=== PATIENT | female | born 1945 | race Caucasian/White ===

== ENCOUNTER 2017-07-30 11:55 | Inpatient (IN) | payer MEDICARE, OTHER ==
[2017-07-30] MEDS: SOD CHLORIDE 0.9% 1,000 ML IV ×2 (15:00→23:00)
[2017-07-30 15:34] LABS: ADD MAN DIFF? NO
[2017-07-30 15:38] LABS: WHITE BLOOD COUNT 9.6 10^3/ul (4.8-10.8)
[2017-07-30 15:38] LABS: ABNORMAL IP MESSAGE 1; BASOPHIL # 0.1 10^3/ul (0.0-0.1); BASOPHILS % 0.5 % (0.0-2.0); EOSINOPHILS # 0.1 10^3/ul (0.0-0.5); EOSINOPHILS % 0.9 % (0.0-7.0); HEMATOCRIT 37.7 % (37.0-47.0); HEMOGLOBIN 11.2 g/dl (12.0-16.0); LYMPHOCYTES # 0.9 10^3/ul (0.8-2.9); LYMPHOCYTES % 9.8 % (15.0-51.0); MEAN CORPUSCULAR HEMOGLOBIN 28.9 pg (29.0-33.0); MEAN CORPUSCULAR HGB CONC 29.7 g/dl (32.0-37.0); MEAN CORPUSCULAR VOLUME 97.2 fl (82.0-101.0); MEAN PLATELET VOLUME 13.2 fl (7.4-10.4); MONOCYTE # 0.8 10^3/ul (0.3-0.9); MONOCYTES % 7.9 % (0.0-11.0); NEUTROPHIL # 7.6 10^3/ul (1.6-7.5); NEUTROPHILS % 79.9 % (39.0-77.0); PLATELET COUNT 138 10^3/UL (140-415); RED BLOOD COUNT 3.88 10^6/ul (4.20-5.40); RED CELL DISTRIBUTION WIDTH 15.6 % (11.5-14.5)
[2017-07-30 15:47] LABS: POSITIVE DIFF @See below
[2017-07-30 15:57] LABS: INR 0.93; PROTIME 12.5 Sec (11.9-14.9)
[2017-07-30] MEDS ORDERED: PENDING SANTYL ORDER FOR WOUND CARE XX (16:00)
[2017-07-30 16:04] LABS: ALANINE AMINOTRANSFERASE 37 IU/L (13-69); ALBUMIN 3.9 g/dl (3.3-4.9); ALBUMIN/GLOBULIN RATIO 1.08; ALKALINE PHOSPHATASE 108 IU/L (42-121); ANION GAP 18 (8-16); ASPARTATE AMINO TRANSFERASE 15 IU/L (15-46); BLOOD UREA NITROGEN 81 mg/dl (7-20); CALCIUM 10.4 mg/dl (8.4-10.2); CARBON DIOXIDE 19 mmol/L (21-31); CHLORIDE 115 mmol/L (97-110); CREATININE 5.06 mg/dl (0.44-1.00); GLUCOSE 77 mg/dl (70-220); POTASSIUM 5.5 mmol/L (3.5-5.1); SODIUM 146 mmol/L (135-144); TOTAL PROTEIN 7.5 g/dl (6.1-8.1)
[2017-07-30] MEDS ORDERED: ACETAMINOPHEN 325 MG TAB PO (16:30)
[2017-07-30] MEDS ORDERED: ONDANSETRON 4 MG INJ IV (16:30)
[2017-07-30] MEDS ORDERED: NACL 0.9% 3 ML SYG IV (16:30)
[2017-07-30] MEDS: CALCIUM ACETATE 667 MG CAP PO (17:35)
[2017-07-30 19:39] LABS: ALANINE AMINOTRANSFERASE 28 IU/L (13-69); ALBUMIN 3.9 g/dl (3.3-4.9); ALBUMIN/GLOBULIN RATIO 1.11; ALKALINE PHOSPHATASE 106 IU/L (42-121); ANION GAP 16 (8-16); ASPARTATE AMINO TRANSFERASE 13 IU/L (15-46); BLOOD UREA NITROGEN 78 mg/dl (7-20); CALCIUM 10.2 mg/dl (8.4-10.2); CARBON DIOXIDE 19 mmol/L (21-31); CHLORIDE 117 mmol/L (97-110); CREATININE 4.97 mg/dl (0.44-1.00); GLUCOSE 103 mg/dl (70-220); POTASSIUM 5.3 mmol/L (3.5-5.1); SODIUM 147 mmol/L (135-144); TOTAL PROTEIN 7.4 g/dl (6.1-8.1)
[2017-07-30 20:10] LABS: HEPATITIS B SURFACE ANTIGEN NEGATIVE (NEGATIVE)
[2017-07-30 20:27] LABS: HEPATITIS C VIRAL ANTIBODY NEGATIVE (NEGATIVE)
[2017-07-30] MEDS: CITRIC ACID/SODIUM CITRATE 15 ML CUP PO (20:52)
[2017-07-30] MEDS: QUETIAPINE 25 MG TAB PO (20:53)
[2017-07-30] MEDS: RISPERIDONE 1 MG TAB PO (20:53)
[2017-07-30] MEDS: HEPARIN 5,000 UNIT/0.5 ML VIAL SC (20:53)
[2017-07-31 01:57] LABS: ADD UMIC YES; UR AMORPHOUS CRYSTAL FEW /HPF (NONE SEEN); UR ASCORBIC ACID NEGATIVE (NEGATIVE); UR BACTERIA MODERATE /HPF (NONE SEEN); UR BILIRUBIN (Dip) NEGATIVE (NEGATIVE); UR BLOOD (Dip) 1+ mg/dL (NEGATIVE); UR CLARITY CLOUDY (CLEAR); UR COLOR YELLOW (YELLOW); UR GLUCOSE (Dip) NEGATIVE (NEGATIVE); UR KETONES (Dip) NEGATIVE (NEGATIVE); UR LEUKOCYTE ESTERASE (Dip) 3+ Leu/ul (NEGATIVE); UR NITRITE (Dip) NEGATIVE (NEGATIVE); UR RBC 5 /HPF (0-5); UR SPECIFIC GRAVITY (Dip) 1.005 (1.003-1.030); UR TOTAL PROTEIN (Dip) 2+ mg/dl (NEGATIVE); UR UROBILINOGEN (Dip) NEGATIVE (NEGATIVE); UR WBC 71 /HPF (0-5)
[2017-07-31] MEDS: SOD CHLORIDE 0.9% 1,000 ML IV (02:41)
[2017-07-31 02:43] LABS: CREATININE,URINE RANDOM 30.31 mg/dl (20-320)
[2017-07-31 03:10] LABS: SODIUM,URINE RANDOM 44 mmol/L (30-90)
[2017-07-31 06:57] LABS: ADD MAN DIFF? NO
[2017-07-31 07:06] LABS: ABNORMAL IP MESSAGE 1; BASOPHIL # 0.1 10^3/ul (0.0-0.1); BASOPHILS % 0.9 % (0.0-2.0); EOSINOPHILS # 0.1 10^3/ul (0.0-0.5); EOSINOPHILS % 1.6 % (0.0-7.0); HEMATOCRIT 35.7 % (37.0-47.0); HEMOGLOBIN 10.5 g/dl (12.0-16.0); LYMPHOCYTES % 17.5 % (15.0-51.0); MEAN CORPUSCULAR HEMOGLOBIN 28.5 pg (29.0-33.0); MEAN CORPUSCULAR HGB CONC 29.4 g/dl (32.0-37.0); MEAN PLATELET VOLUME 13.1 fl (7.4-10.4); MONOCYTE # 0.5 10^3/ul (0.3-0.9); MONOCYTES % 9.2 % (0.0-11.0); NEUTROPHILS % 69.8 % (39.0-77.0); PLATELET COUNT 107 10^3/UL (140-415); RED BLOOD COUNT 3.68 10^6/ul (4.20-5.40); RED CELL DISTRIBUTION WIDTH 15.7 % (11.5-14.5)
[2017-07-31 07:06] LABS: WHITE BLOOD COUNT 5.7 10^3/ul (4.8-10.8)
[2017-07-31 07:13] LABS: POSITIVE DIFF @See below
[2017-07-31 07:17] LABS: IRON 83 ug/dl (35-150)
[2017-07-31 07:26] LABS: % IRON SATURATION 45 % SAT (22-52); TOTAL IRON BINDING CAPACITY 186 ug/dl (241-421)
[2017-07-31 07:32] LABS: ANION GAP 18 (8-16); BLOOD UREA NITROGEN 73 mg/dl (7-20); CALCIUM 9.8 mg/dl (8.4-10.2); CARBON DIOXIDE 19 mmol/L (21-31); CHLORIDE 119 mmol/L (97-110); CREATININE 4.66 mg/dl (0.44-1.00); GLUCOSE 76 mg/dl (70-220); MAGNESIUM 2.5 mg/dl (1.7-2.5); PHOSPHORUS 5.2 mg/dl (2.5-4.9); POTASSIUM 5.3 mmol/L (3.5-5.1); SODIUM 151 mmol/L (135-144)
[2017-07-31] MEDS: SOD CHLORIDE 0.45% 1,000 ML IV ×3 (09:20→20:52)
[2017-07-31] MEDS: CITRIC ACID/SODIUM CITRATE 15 ML CUP PO ×2 (09:21→20:53)
[2017-07-31] MEDS: HEPARIN 5,000 UNIT/0.5 ML VIAL SC ×3 (09:21→21:00)
[2017-07-31] MEDS: CALCIUM ACETATE 667 MG CAP PO ×3 (09:22→17:11)
[2017-07-31] MEDS: FERROUS SULFATE (EC) 325 MG TAB PO (09:22)
[2017-07-31] MEDS: AMLODIPINE 2.5 MG TAB PO (09:22)
[2017-07-31] MEDS: FAMOTIDINE 20 MG TAB PO (09:23)
[2017-07-31] MEDS: CITALOPRAM 20 MG TAB PO (09:23)
[2017-07-31] MEDS: QUETIAPINE 25 MG TAB PO ×2 (09:23→20:53)
[2017-07-31] MEDS: NA POLYST SULFON 15 GM/60 ML BTL PO (09:24)
[2017-07-31] MEDS: CEFTRIAXONE 1 GM/50 ML (PMX) 50 ML IVPB (14:58)
[2017-07-31 16:20] LABS: ANION GAP 15 (8-16); BLOOD UREA NITROGEN 73 mg/dl (7-20); CALCIUM 9.3 mg/dl (8.4-10.2); CARBON DIOXIDE 21 mmol/L (21-31); CHLORIDE 117 mmol/L (97-110); CREATININE 4.49 mg/dl (0.44-1.00); GLUCOSE 121 mg/dl (70-220); POTASSIUM 4.8 mmol/L (3.5-5.1); SODIUM 148 mmol/L (135-144)
[2017-07-31] MEDS: RISPERIDONE 1 MG TAB PO (20:53)
[2017-07-31] MEDS: DOCUSATE SODIUM 100 MG CAP PO (20:53)
[2017-08-01] MEDS ORDERED: LIDOCAINE 1% (MDV) 20 ML INJ (07:19)
[2017-08-01] MEDS ORDERED: HEPARIN 1000 UNITS/ML 10 ML INJ (07:20)
[2017-08-01] MEDS ORDERED: FENTAnyl 50 MCG/ML VIAL (07:20)
[2017-08-01] MEDS: CALCIUM ACETATE 667 MG CAP PO ×3 (07:35→17:38)
[2017-08-01] MEDS ORDERED: IODIXANOL LOCM 50 ML BTL (07:52)
[2017-08-01] MEDS: AMLODIPINE 2.5 MG TAB PO (09:00)
[2017-08-01] MEDS: CITALOPRAM 20 MG TAB PO (10:53)
[2017-08-01] MEDS: FAMOTIDINE 20 MG TAB PO (11:00)
[2017-08-01] MEDS: FERROUS SULFATE (EC) 325 MG TAB PO (11:00)
[2017-08-01] MEDS: QUETIAPINE 25 MG TAB PO ×2 (11:00→20:31)
[2017-08-01 15:05] LABS: HEPATITIS B SURFACE ANTIGEN NEGATIVE (NEGATIVE)
[2017-08-01 15:12] LABS: CREATININE, RANDOM URINE 36 mg/dL (20-320); MICROALBUMIN 43.4 mg/dL; MICROALBUMIN/CREATININE RATIO 1206 (<30)
[2017-08-01] MEDS: HEPARIN 1000 UNITS/ML 10 ML INJ CATHETER (15:52)
[2017-08-01] MEDS: CEFTRIAXONE 1 GM/50 ML (PMX) 50 ML IVPB (17:38)
[2017-08-01 18:04] LABS: CREATINE KINASE 27 IU/L (23-200)
[2017-08-01 18:16] LABS: CK INDEX 7.2; CK-MB 1.95 ng/ml (0.0-2.4); TROPONIN-I 0.012 ng/ml (0.000-0.120)
[2017-08-01] MEDS: MAGNESIUM HYDROXIDE 30ML CUP PO (20:31)
[2017-08-01] MEDS: RISPERIDONE 1 MG TAB PO (20:31)
[2017-08-02 01:30] LABS: CREATINE KINASE 31 IU/L (23-200)
[2017-08-02 01:42] LABS: CK INDEX 5.4; CK-MB 1.68 ng/ml (0.0-2.4); TROPONIN-I 0.014 ng/ml (0.000-0.120)
[2017-08-02] MEDS: CALCIUM ACETATE 667 MG CAP PO ×3 (08:52→17:52)
[2017-08-02] MEDS: AMLODIPINE 2.5 MG TAB PO (08:53)
[2017-08-02] MEDS: FAMOTIDINE 20 MG TAB PO (08:53)
[2017-08-02] MEDS: QUETIAPINE 25 MG TAB PO ×2 (08:53→21:20)
[2017-08-02] MEDS: FERROUS SULFATE (EC) 325 MG TAB PO (08:53)
[2017-08-02] MEDS: CITALOPRAM 20 MG TAB PO (08:53)
[2017-08-02 10:40] LABS: ADD MAN DIFF? NO
[2017-08-02 10:52] LABS: WHITE BLOOD COUNT 6.6 10^3/ul (4.8-10.8)
[2017-08-02 10:52] LABS: ABNORMAL IP MESSAGE 1; BASOPHILS % 0.6 % (0.0-2.0); EOSINOPHILS # 0.1 10^3/ul (0.0-0.5); EOSINOPHILS % 1.1 % (0.0-7.0); HEMOGLOBIN 11.3 g/dl (12.0-16.0); LYMPHOCYTES # 0.8 10^3/ul (0.8-2.9); LYMPHOCYTES % 12.7 % (15.0-51.0); MEAN CORPUSCULAR HGB CONC 29.7 g/dl (32.0-37.0); MEAN CORPUSCULAR VOLUME 94.1 fl (82.0-101.0); MEAN PLATELET VOLUME 12.6 fl (7.4-10.4); MONOCYTE # 0.6 10^3/ul (0.3-0.9); MONOCYTES % 8.8 % (0.0-11.0); NEUTROPHILS % 76.2 % (39.0-77.0); PLATELET COUNT 124 10^3/UL (140-415); RED BLOOD COUNT 4.04 10^6/ul (4.20-5.40); RED CELL DISTRIBUTION WIDTH 15.4 % (11.5-14.5)
[2017-08-02 10:53] LABS: POSITIVE DIFF @See below
[2017-08-02 11:01] LABS: CHOL/HDL RATIO 5.5 RATIO; CREATINE KINASE 34 IU/L (23-200); HDL CHOLESTEROL 34 mg/dl (33-92); LDL CHOLESTEROL,CALCULATED 129 mg/dl; MAGNESIUM 2.4 mg/dl (1.7-2.5); TRIGLYCERIDES 125 mg/dl (0-149)
[2017-08-02 11:01] LABS: CHOLESTEROL 188 mg/dl (100-200); PHOSPHORUS 2.4 mg/dl (2.5-4.9)
[2017-08-02 11:02] LABS: ANION GAP 15 (8-16); BLOOD UREA NITROGEN 40 mg/dl (7-20); CARBON DIOXIDE 26 mmol/L (21-31); CHLORIDE 111 mmol/L (97-110); CREATININE 3.16 mg/dl (0.44-1.00); GLUCOSE 169 mg/dl (70-220); POTASSIUM 4.3 mmol/L (3.5-5.1); SODIUM 148 mmol/L (135-144)
[2017-08-02 11:12] LABS: CK INDEX 4.5; CK-MB 1.52 ng/ml (0.0-2.4)
[2017-08-02 11:15] LABS: TROPONIN-I < 0.010 ng/ml (0.000-0.120)
[2017-08-02] MEDS: CEFTRIAXONE 1 GM/50 ML (PMX) 50 ML IVPB ×2 (14:32→14:40)
[2017-08-02] MEDS: EPOETIN 3000 UNITS/1 ML INJ (ESRD) SC (17:54)
[2017-08-02] MEDS: RISPERIDONE 1 MG TAB PO (21:20)
[2017-08-03] MEDS: HEPARIN 1000 UNITS/ML 10 ML INJ CATHETER (02:17)
[2017-08-03 06:19] LABS: ADD MAN DIFF? NO
[2017-08-03 06:24] LABS: ABNORMAL IP MESSAGE 1; BASOPHILS % 0.6 % (0.0-2.0); EOSINOPHILS # 0.1 10^3/ul (0.0-0.5); EOSINOPHILS % 1.4 % (0.0-7.0); HEMATOCRIT 35.3 % (37.0-47.0); HEMOGLOBIN 10.8 g/dl (12.0-16.0); LYMPHOCYTES # 1.6 10^3/ul (0.8-2.9); LYMPHOCYTES % 24.3 % (15.0-51.0); MEAN CORPUSCULAR HEMOGLOBIN 28.8 pg (29.0-33.0); MEAN CORPUSCULAR HGB CONC 30.6 g/dl (32.0-37.0); MEAN CORPUSCULAR VOLUME 94.1 fl (82.0-101.0); MEAN PLATELET VOLUME 13.5 fl (7.4-10.4); MONOCYTE # 0.8 10^3/ul (0.3-0.9); MONOCYTES % 12.7 % (0.0-11.0); NEUTROPHIL # 3.8 10^3/ul (1.6-7.5); NEUTROPHILS % 60.1 % (39.0-77.0); PLATELET COUNT 117 10^3/UL (140-415); RED BLOOD COUNT 3.75 10^6/ul (4.20-5.40); RED CELL DISTRIBUTION WIDTH 15.3 % (11.5-14.5)
[2017-08-03 06:24] LABS: WHITE BLOOD COUNT 6.4 10^3/ul (4.8-10.8)
[2017-08-03 06:55] LABS: POSITIVE DIFF @See below
[2017-08-03 07:03] LABS: ANION GAP 11 (8-16); BLOOD UREA NITROGEN 24 mg/dl (7-20); CALCIUM 9.4 mg/dl (8.4-10.2); CARBON DIOXIDE 29 mmol/L (21-31); CHLORIDE 104 mmol/L (97-110); GLUCOSE 84 mg/dl (70-220); MAGNESIUM 2.2 mg/dl (1.7-2.5); PHOSPHORUS 2.9 mg/dl (2.5-4.9); POTASSIUM 4.9 mmol/L (3.5-5.1); SODIUM 139 mmol/L (135-144)
[2017-08-03] MEDS: CALCIUM ACETATE 667 MG CAP PO ×3 (08:21→17:39)
[2017-08-03] MEDS: DOCUSATE SODIUM 100 MG CAP PO (08:21)
[2017-08-03] MEDS: CITALOPRAM 20 MG TAB PO (08:22)
[2017-08-03] MEDS: QUETIAPINE 25 MG TAB PO ×2 (08:22→20:16)
[2017-08-03] MEDS: FAMOTIDINE 20 MG TAB PO (08:22)
[2017-08-03] MEDS: FERROUS SULFATE (EC) 325 MG TAB PO (08:22)
[2017-08-03] MEDS: AMLODIPINE 5 MG TAB PO (09:10)
[2017-08-03] MEDS: CEFTRIAXONE 1 GM/50 ML (PMX) 50 ML IVPB (14:10)
[2017-08-03] MEDS: RISPERIDONE 1 MG TAB PO (20:17)
[2017-08-04] MEDS: FERROUS SULFATE (EC) 325 MG TAB PO (09:14)
[2017-08-04] MEDS: FAMOTIDINE 20 MG TAB PO (09:14)
[2017-08-04] MEDS: CITALOPRAM 20 MG TAB PO (09:14)
[2017-08-04] MEDS: CALCIUM ACETATE 667 MG CAP PO ×3 (09:14→18:03)
[2017-08-04] MEDS: QUETIAPINE 25 MG TAB PO ×2 (09:14→21:28)
[2017-08-04] MEDS: AMLODIPINE 5 MG TAB PO (09:16)
[2017-08-04] MEDS: CEFTRIAXONE 1 GM/50 ML (PMX) 50 ML IVPB (15:25)
[2017-08-04] MEDS: RISPERIDONE 1 MG TAB PO (21:27)
[2017-08-04] MEDS: HEPARIN 1000 UNITS/ML 10 ML INJ CATHETER (23:47)
[2017-08-05] MEDS: FERROUS SULFATE (EC) 325 MG TAB PO (09:00)
[2017-08-05] MEDS: AMLODIPINE 5 MG TAB PO (09:00)
[2017-08-05] MEDS: QUETIAPINE 25 MG TAB PO ×2 (09:00→20:28)
[2017-08-05] MEDS: CITALOPRAM 20 MG TAB PO (09:00)
[2017-08-05] MEDS: FAMOTIDINE 20 MG TAB PO (09:00)
[2017-08-05] MEDS: CALCIUM ACETATE 667 MG CAP PO ×3 (09:00→17:29)
[2017-08-05] MEDS: CEFTRIAXONE 1 GM/50 ML (PMX) 50 ML IVPB (14:48)
[2017-08-05] MEDS: EPOETIN 3000 UNITS/1 ML INJ (ESRD) SC (16:18)
[2017-08-05] MEDS: RISPERIDONE 1 MG TAB PO (20:28)
[2017-08-06 06:44] LABS: ADD MAN DIFF? NO
[2017-08-06 06:46] LABS: ABNORMAL IP MESSAGE 1; BASOPHIL # 0.1 10^3/ul (0.0-0.1); BASOPHILS % 0.6 % (0.0-2.0); EOSINOPHILS # 0.2 10^3/ul (0.0-0.5); EOSINOPHILS % 2.2 % (0.0-7.0); HEMATOCRIT 38.2 % (37.0-47.0); HEMOGLOBIN 11.3 g/dl (12.0-16.0); LYMPHOCYTES # 1.6 10^3/ul (0.8-2.9); LYMPHOCYTES % 19.2 % (15.0-51.0); MEAN CORPUSCULAR HGB CONC 29.6 g/dl (32.0-37.0); MEAN CORPUSCULAR VOLUME 94.6 fl (82.0-101.0); MEAN PLATELET VOLUME 13.7 fl (7.4-10.4); MONOCYTE # 0.8 10^3/ul (0.3-0.9); NEUTROPHIL # 5.8 10^3/ul (1.6-7.5); NEUTROPHILS % 67.8 % (39.0-77.0); PLATELET COUNT 95 10^3/UL (140-415); RED BLOOD COUNT 4.04 10^6/ul (4.20-5.40); RED CELL DISTRIBUTION WIDTH 15.4 % (11.5-14.5)
[2017-08-06 06:46] LABS: WHITE BLOOD COUNT 8.5 10^3/ul (4.8-10.8)
[2017-08-06 06:52] LABS: POSITIVE DIFF @See below
[2017-08-06 07:06] LABS: ANION GAP 14 (8-16); BLOOD UREA NITROGEN 62 mg/dl (7-20); CALCIUM 10.4 mg/dl (8.4-10.2); CARBON DIOXIDE 27 mmol/L (21-31); CHLORIDE 103 mmol/L (97-110); CREATININE 4.47 mg/dl (0.44-1.00); GLUCOSE 97 mg/dl (70-220); MAGNESIUM 2.6 mg/dl (1.7-2.5); PHOSPHORUS 4.4 mg/dl (2.5-4.9); POTASSIUM 4.8 mmol/L (3.5-5.1); SODIUM 139 mmol/L (135-144)
[2017-08-06] MEDS: CALCIUM ACETATE 667 MG CAP PO ×3 (08:57→17:20)
[2017-08-06] MEDS: FAMOTIDINE 20 MG TAB PO (08:58)
[2017-08-06] MEDS: CITALOPRAM 20 MG TAB PO (08:58)
[2017-08-06] MEDS: QUETIAPINE 25 MG TAB PO ×2 (08:58→21:12)
[2017-08-06] MEDS: AMLODIPINE 5 MG TAB PO (08:58)
[2017-08-06] MEDS: FERROUS SULFATE (EC) 325 MG TAB PO (08:58)
[2017-08-06 13:17] LABS: HEPATITIS B SURFACE ANTIBODY NEGATIVE (NEGATIVE)
[2017-08-06 13:18] LABS: HEPATITIS B CORE ANTIBODY NEGATIVE (NEGATIVE)
[2017-08-06] MEDS: CEFTRIAXONE 1 GM/50 ML (PMX) 50 ML IVPB (14:17)
[2017-08-06] MEDS ORDERED: MIDAZOLAM 1 MG/ML 2 ML INJ (16:39)
[2017-08-06] MEDS ORDERED: FENTAnyl 50 MCG/ML VIAL (16:39)
[2017-08-06] MEDS: VANCOMYCIN 1 GM (PMX) 250 ML (16:45)
[2017-08-06] MEDS ORDERED: ROPIVACAINE 0.5 % 30 ML VIAL (16:47)
[2017-08-06] MEDS: LIDOCAINE 1% (MPF) 30 ML INJ (17:20)
[2017-08-06] MEDS: HEPARIN 1000 UNITS/ML 10 ML INJ (17:21)
[2017-08-06] MEDS: GELATIN SIZE 100 SPONGE (17:48)
[2017-08-06] MEDS: THROMBIN 5000 UNIT VIAL (17:49)
[2017-08-06] MEDS ORDERED: ONDANSETRON 4 MG INJ (17:54)
[2017-08-06] MEDS: DOCUSATE SODIUM 100 MG CAP PO (21:12)
[2017-08-06] MEDS: RISPERIDONE 1 MG TAB PO (21:12)
[2017-08-07] MEDS: MAGNESIUM HYDROXIDE 30ML CUP PO (05:59)
[2017-08-07 06:47] LABS: ADD MAN DIFF? NO
[2017-08-07 06:48] LABS: ABNORMAL IP MESSAGE 1; BASOPHIL # 0.1 10^3/ul (0.0-0.1); BASOPHILS % 0.8 % (0.0-2.0); EOSINOPHILS # 0.2 10^3/ul (0.0-0.5); EOSINOPHILS % 2.4 % (0.0-7.0); HEMATOCRIT 36.4 % (37.0-47.0); HEMOGLOBIN 10.7 g/dl (12.0-16.0); LYMPHOCYTES # 1.4 10^3/ul (0.8-2.9); MEAN CORPUSCULAR HEMOGLOBIN 28.3 pg (29.0-33.0); MEAN CORPUSCULAR HGB CONC 29.4 g/dl (32.0-37.0); MEAN CORPUSCULAR VOLUME 96.3 fl (82.0-101.0); MONOCYTE # 0.9 10^3/ul (0.3-0.9); MONOCYTES % 11.5 % (0.0-11.0); NEUTROPHIL # 5.2 10^3/ul (1.6-7.5); NEUTROPHILS % 65.9 % (39.0-77.0); PLATELET COUNT 87 10^3/UL (140-415); RED BLOOD COUNT 3.78 10^6/ul (4.20-5.40); RED CELL DISTRIBUTION WIDTH 15.2 % (11.5-14.5)
[2017-08-07 06:48] LABS: WHITE BLOOD COUNT 7.8 10^3/ul (4.8-10.8)
[2017-08-07 06:57] LABS: POSITIVE DIFF @See below
[2017-08-07 07:12] LABS: ALANINE AMINOTRANSFERASE 25 IU/L (13-69); ALBUMIN 3.8 g/dl (3.3-4.9); ALBUMIN/GLOBULIN RATIO 1.08; ALKALINE PHOSPHATASE 89 IU/L (42-121); ANION GAP 12 (8-16); ASPARTATE AMINO TRANSFERASE 17 IU/L (15-46); BILIRUBIN,INDIRECT 0.2 mg/dl (0-1.1); BILIRUBIN,TOTAL 0.2 mg/dl (0.2-1.3); BLOOD UREA NITROGEN 64 mg/dl (7-20); CALCIUM 10.4 mg/dl (8.4-10.2); CARBON DIOXIDE 28 mmol/L (21-31); CHLORIDE 108 mmol/L (97-110); CREATININE 4.65 mg/dl (0.44-1.00); GLUCOSE 92 mg/dl (70-220); SODIUM 143 mmol/L (135-144); TOTAL PROTEIN 7.3 g/dl (6.1-8.1)
[2017-08-07 07:22] LABS: MAGNESIUM 2.9 mg/dl (1.7-2.5)
[2017-08-07 07:22] LABS: PHOSPHORUS 4.1 mg/dl (2.5-4.9)
[2017-08-07] MEDS: CITALOPRAM 20 MG TAB PO (08:22)
[2017-08-07] MEDS: FAMOTIDINE 20 MG TAB PO (08:22)
[2017-08-07] MEDS: QUETIAPINE 25 MG TAB PO ×2 (08:22→21:58)
[2017-08-07] MEDS: FERROUS SULFATE (EC) 325 MG TAB PO (08:22)
[2017-08-07] MEDS: AMLODIPINE 5 MG TAB PO (08:22)
[2017-08-07] MEDS: CALCIUM ACETATE 667 MG CAP PO ×3 (08:22→17:22)
[2017-08-07] MEDS: HEPARIN 1000 UNITS/ML 10 ML INJ CATHETER (14:26)
[2017-08-07] MEDS: CEFTRIAXONE 1 GM/50 ML (PMX) 50 ML IVPB (14:58)
[2017-08-07] MEDS: EPOETIN 3000 UNITS/1 ML INJ (ESRD) SC (17:23)
[2017-08-07] MEDS: RISPERIDONE 1 MG TAB PO (21:58)
[2017-08-08] MEDS: CALCIUM ACETATE 667 MG CAP PO ×3 (08:11→17:17)
[2017-08-08] MEDS: FAMOTIDINE 20 MG TAB PO (08:11)
[2017-08-08] MEDS: CITALOPRAM 20 MG TAB PO (08:11)
[2017-08-08] MEDS: FERROUS SULFATE (EC) 325 MG TAB PO (08:11)
[2017-08-08] MEDS: QUETIAPINE 25 MG TAB PO (08:11)
[2017-08-08] MEDS: AMLODIPINE 5 MG TAB PO (08:12)
[2017-08-08] MEDS: CEFTRIAXONE 1 GM/50 ML (PMX) 50 ML IVPB (14:18)
[2017-08-13] MEDS ORDERED: VITAMIN A & D 5 GM OINT PACKET TOP (11:20)
== END 2017-08-08 18:48 | DRG 673 ==
LOC: PP2 11:55
PROC: 031809D Bypass Left Brachial Artery to Upper Arm Vein with Autologous Venous Tissue, Open Approach (ICD-10-PCS; principal; 2017-08-01 07:09)
PROC: 0JH63XZ Insertion of Tunneled Vascular Access Device into Chest Subcutaneous Tissue and Fascia, Percutaneous Approach (ICD-10-PCS; 2017-08-01 07:09)
PROC: 05HM33Z Insertion of Infusion Device into Right Internal Jugular Vein, Percutaneous Approach (ICD-10-PCS; 2017-08-01 07:09)
PROC: 5A1D70Z Performance of Urinary Filtration, Intermittent, Less than 6 Hours Per Day (ICD-10-PCS; 2017-08-01 07:09)
DX: I12.0 Hypertensive chronic kidney disease with stage 5 chronic kidney disease or end stage renal disease (principal); G93.49 Other encephalopathy; N18.6 End stage renal disease; N17.9 Acute kidney failure, unspecified; E87.0 Hyperosmolality and hypernatremia; E87.2 Acidosis; N39.0 Urinary tract infection, site not specified; L97.819 Non-pressure chronic ulcer of other part of right lower leg with unspecified severity; D63.8 Anemia in other chronic diseases classified elsewhere; I10 Essential (primary) hypertension; F01.50 Vascular dementia, unspecified severity, without behavioral disturbance, psychotic disturbance, mood disturbance, and anxiety; Z66 Do not resuscitate; F31.9 Bipolar disorder, unspecified; E87.5 Hyperkalemia; Z72.0 Tobacco use; K21.9 Gastro-esophageal reflux disease without esophagitis; B96.20 Unspecified Escherichia coli [E. coli] as the cause of diseases classified elsewhere; I70.202 Unspecified atherosclerosis of native arteries of extremities, left leg; I70.238 Atherosclerosis of native arteries of right leg with ulceration of other part of lower leg
CPT/HCPCS: 71045; 76937; 80048; 80053; 80061; 81001; 81003; 82043; 82550; 82553; 83540; 83735; 84100; 84155; 84300; 84484; 85025; 85610; 86704; 86706; 86803; 87081; 87086; 87340; 90935; 93005; 93306; 93922; 93923; 93970